=== PATIENT | male | born 1960 | race Caucasian/White ===

== ENCOUNTER → 2016-10-19 07:11 | Outpatient (CLI) | payer MEDICAID ==
[2015-08-26 17:53] VITALS: BMI 36.6
[~2016-10-19 07:11] MED LIST: AMBIEN10 MG PO; ASPIRIN325 MG PO; ASPIRIN81 MG PO; ATIVAN2 MG; ATIVAN2 MG PO; CELEXA20 MG PO; COLACE100 MG PO; COMBIVENT RESPIM4 GM INH; CORDARONE200 MG PO; DIOVAN HCT 160/1 TA1 PO; DIOVAN160 MG PO; HEMOCYTE PLUS C1 CAP PO; HYDROCODON-ACE1 EAC9 PO; HYDROCODONE-APA1 TAB PO; K-DUR20 MEQ PO; LASIX20 MG PO; LIPITOR20 MG PO; SENOKOT-S TABLE1 TAB PO; ULTRAM50 MG PO; VITAMIN D31000 UNIT PO
== END | disposition home or self-care (01) ==
LOC: D.RAD 07:11
DX: M79.605 Pain in left leg (principal)

== ENCOUNTER 2017-01-17 21:26 | Emergency (ER) | payer MEDICAID ==
[2015-08-26 17:53] VITALS: BMI 36.6
== END 2017-01-18 02:35 | disposition home or self-care (01) ==
LOC: D.ER 21:26
DX: S86.912A Strain of unspecified muscle(s) and tendon(s) at lower leg level, left leg, initial encounter (principal); X58.XXXA Exposure to other specified factors, initial encounter; Y93.89 Activity, other specified; Y92.019 Unspecified place in single-family (private) house as the place of occurrence of the external cause; I10 Essential (primary) hypertension

== ENCOUNTER 2017-01-24 19:49 | Emergency (ER) | payer MEDICAID ==
[2015-08-26 17:53] VITALS: BMI 36.6
== END 2017-01-24 21:15 | disposition home or self-care (01) ==
LOC: D.ER 19:49
DX: T42.6X1A Poisoning by other antiepileptic and sedative-hypnotic drugs, accidental (unintentional), initial encounter (principal); T39.1X1A Poisoning by 4-Aminophenol derivatives, accidental (unintentional), initial encounter; Y92.019 Unspecified place in single-family (private) house as the place of occurrence of the external cause; I10 Essential (primary) hypertension